=== PATIENT | female | born 1965 | race Asian ===

== ENCOUNTER 2019-02-12 09:32 | Day surgery (SDC) | payer MEDICAID ==
[~2019-02-12] VITALS: Ht 152.4 cm; Wt 46.3 kg
[2019-02-12] MEDS ORDERED: fentaNYL 0.05 MG/ML VIAL IVP ONE (13:01)
[2019-02-12] MEDS ORDERED: fentaNYL 0.05 MG/ML VIAL ONE (13:06)
[2019-02-12] MEDS ORDERED: LIDOCAINE 2% 100 MG/5 ML UJET TP ONE (13:06)
== END 2019-02-12 14:01 | disposition home or self-care (01) ==
LOC: MDS 09:32 → MMU 09:37 → MDS 14:01
PROVIDERS: ATTEND Internal Medicine Gastroenterology
DX: Z12.11 Encounter for screening for malignant neoplasm of colon (principal); D12.3 Benign neoplasm of transverse colon; D12.5 Benign neoplasm of sigmoid colon
CPT/HCPCS: 45385; J3010